=== PATIENT | female | born 1985 | race Caucasian/White ===

== ENCOUNTER 2017-10-16 17:09 | Emergency (ER) | payer SELFPAY ==
[~2017-10-16] VITALS: Ht 167.6 cm; Wt 79.4 kg
[2017-10-16 17:14] VITALS: BP_SYST 124
[2017-10-16] MEDS ORDERED: ACETAMINOPHEN 325 MG TABLET PO ONE (17:45)
[2017-10-16 18:31] VITALS: BP_SYST 124
== END 2017-10-16 18:31 | disposition home or self-care (01) ==
LOC: SED 17:09
DX: S93.492A Sprain of other ligament of left ankle, initial encounter (principal); Z90.89 Acquired absence of other organs; X58.XXXA Exposure to other specified factors, initial encounter; Y93.66 Activity, soccer; Y92.322 Soccer field as the place of occurrence of the external cause; Y99.8 Other external cause status
CPT/HCPCS: 99284

== ENCOUNTER 2019-01-09 12:59 | Emergency (ER) | payer MEDICAID ==
[~2019-01-09] VITALS: Ht 167.6 cm; Wt 81.6 kg
[2019-01-09 13:07] VITALS: BP_SYST 123
[2019-01-09 14:51] LABS: STREPTOCOCCUS A SCREEN (RAPID) NEGATIVE (NEGATIVE)
[2019-01-09] MEDS ORDERED: OSELTAMIVIR PHOSPHATE 75 MG CAPSULE PO ONE (15:15)
[2019-01-09 15:26] VITALS: BP_SYST 123
== END 2019-01-09 15:26 | disposition home or self-care (01) ==
LOC: SED 12:59
DX: J11.1 Influenza due to unidentified influenza virus with other respiratory manifestations (principal); R03.0 Elevated blood-pressure reading, without diagnosis of hypertension; Z90.89 Acquired absence of other organs
CPT/HCPCS: 36415; 71045; 81025; 86403; 86710; 87081; 99284; G9035